=== PATIENT | male | born 1985 | race African-American/Black ===

== ENCOUNTER 2019-07-05 03:12 | Emergency (ER) | payer SELFPAY ==
[2019-07-05 03:25] VITALS: BP 148/82
--- NOTE | 2019-07-05 03:46 | ER Document Report ---
ED General - General Chief Complaint: Probable Seizure Stated Complaint: ALTERED MENTAL STATUS Time Seen by Provider: 07/05/19 03:28 Mode of Arrival: Medic Information source: Emergency Med Personnel Notes: This 33-year-old man presents to the emergency department with a history of coming from home where he had a parent episode of seizure-like activity tonight. EMS was called to the home for a episode, upon arrival patient was combative and belligerent did not want to be transferred to the hospital. They did not attempt to transport at that time. They were later called back to the home on a second occasion for similar episode of shaking episode followed by belligerence and combativeness. He was given 5 of Versed in transport to the hospital and upon arrival to the emergency department patient was uncooperative and refusing attempts to provide care. TRAVEL OUTSIDE OF THE [place] IN LAST 30 DAYS: No - Related Data Allergies/Adverse Reactions: No Known Allergies Allergy (Verified 07/05/19 03:39) Past Medical History - Social History Smoking Status: Unknown if Ever Smoked Family History: Reviewed & Not Pertinent Patient has homicidal ideation: No Neurological Medical History: Reports: Hx Seizures Traumatic Medical History: Reports: Hx Fractures, Hx Pneumothorax, Hx Spine Fracture Past Surgical History: Reports: Hx Orthopedic Surgery - Immunizations Hx Diphtheria, Pertussis, Tetanus Vaccination: Yes Review of Systems - Review of Systems -: Yes ROS unobtainable due to patient's medical condition - Sedated and poorly responsive Physical Exam - Vital signs Vitals: Temp 97.6 F 07/05/19 03:12 - Notes Notes: PHYSICAL EXAMINATION: Physical Exam: General: Well-nourished well-developed 33-year-old male in no acute distress HEENT: NC/AT, pupils equal round and reactive to light, MM moist,nares clear, oropharynx clear, airway patent, face is symmetrical Neck: supple, no adenopathy, no masses. Good range of motion Lungs: clear, no wheezing, no rales no rhonchi CVS: Regular rate and rhythm no murmur gallop or rub Abdomen: Soft, active, nontender, no masses, no hepatosplenomegaly Ext: No edema, Neuro: Sleeping, however easily aroused. "Leave me alone" Skin: Intact no open lesions, no rash PSYCH: Normal mood, normal affect. Course - Vital Signs Vital signs: Temp Pulse Resp BP Pulse Ox 97.6 F 95 148/82 H 100 07/05/19 03:12 07/05/19 03:24 07/05/19 03:24 07/05/19 03:24 07/05/19 20:14 Patient had presented with some belligerent behavior and given Versed by EMS. Uncooperative with exam and sleeping, patient care was turned over to Dr. Segura 6 AM, 07/05/2019 Discharge - Discharge Clinical Impression: Altered mental status Qualifiers: Altered mental status type: unspecified Qualified Code(s): R41.82 - Altered mental status, unspecified Condition: Good Disposition: AGAINST MEDICAL ADVICE
== END 2019-07-05 10:11 | disposition left against medical advice (07) ==
LOC: ER 03:12
DX: R41.82 Altered mental status, unspecified (principal)
CPT/HCPCS: 99284